=== PATIENT | male | born 1995 | race Caucasian/White ===

== ENCOUNTER → 2018-10-22 | Outpatient (CLI) | payer SELFPAY ==
[2018-10-22 12:01] LABS: BASOPHILS % 0.2 % (0.0-2.0); CHLORIDE 104 mEq/L (98-107); CLARITY URINE CLEAR (CLEAR); COLOR URINE YELLOW (YELLOW); EOSINOPHILS % 3.2 % (0.0-5.0); HEMATOCRIT. 43.8 % (42.0-52.0); HEMOGLOBIN. 15.3 g/dL (14.0-18.0); KETONES URINE NEGATIVE (NEGATIVE); LEUKOCYTE ESTERASE URINE NEGATIVE (NEGATIVE); LYMPHOCYTES % 26.2 % (20.0-50.0); MEAN CORPUSCULAR HEMOGLOBIN 28.6 pg (28.0-32.0); MEAN CORPUSCULAR VOLUME 81.8 fL (80.0-94.0); MEAN PLATELET VOLUME 7.4 fl (7.4-10.4); MONOCYTES % 7.7 % (2.0-8.0); NEUTROPHILS % 62.7 % (40.0-76.0); NITRITE URINE NEGATIVE (NEGATIVE); OCCULT BLOOD URINE NEGATIVE (NEGATIVE); PH URINE 6.5 (4.5-8.0); PLATELET 227 x1000/uL (130-400); PROTEIN URINE NEGATIVE (NEGATIVE); RED BLOOD CELL COUNT 5.35 mill/uL (4.7-6.1); RED CELL DISTRIBUTION WIDTH 12.9 % (11.6-14.6); SPECIFIC GRAVITY URINE 1.012 (1.005-1.030); UROBILINOGEN URINE 0.2 E.U./dL (0.2-1.0)
[2018-10-22 12:04] LABS: PARTIAL THROMBOPLASTIN TIME 30.8 sec (23.4-31.0); PROTHROMBIN TIME 10.5 sec (9.6-11.0)
== END | disposition home or self-care (01) ==
LOC: LAB 10:46
PROVIDERS: ATTEND Specialist
DX: Z01.810 Encounter for preprocedural cardiovascular examination (principal); L05.91 Pilonidal cyst without abscess
CPT/HCPCS: 36415; 80048

== ENCOUNTER 2018-10-23 09:21 | Day surgery (SDC) | payer SELFPAY ==
[~2018-10-23] VITALS: Ht 170.2 cm; Wt 99.8 kg
[2018-10-23] MEDS ORDERED: BUPIVACAINE HCL/PF 0.5% (5MG/ML) 10ML ONE ×2 (09:53→10:08)
[2018-10-23] MEDS ORDERED: BACITRACIN 50,000 UNITS/VIAL ONE ×2 (09:54→10:08)
[2018-10-23] MEDS ORDERED: NORMAL SALINE 0.9% 10 ML SYR ONE (10:08)
[2018-10-23] MEDS ORDERED: LIDOCAINE HCL 1% 20ML VIAL (Pyxis) INJ ONE (10:08)
[2018-10-23] MEDS ORDERED: LACTATED RINGERS 1,000 ML IV SCH (10:15)
[2018-10-23] MEDS ORDERED: BUPIVACAINE HCL/DEXTROSE/PF 0.75% 2ML AMP INJ ONE (10:27)
[2018-10-23] MEDS ORDERED: MIDAZOLAM HCL 5 MG/5 ML VIAL ONE (10:30)
[2018-10-23] MEDS ORDERED: SODIUM CHLORIDE 0.9% 1,000 ML IV ONE (11:12)
[2018-10-23] MEDS ORDERED: ONDANSETRON HCL 4MG/2ML INJ IV PRN (11:15)
[2018-10-23] MEDS ORDERED: HYDROMORPHONE HCL/PF 2MG/ML CPJ IV PRN (11:15)
== END 2018-10-23 14:00 | disposition home or self-care (01) ==
LOC: OR 09:21
PROVIDERS: ATTEND Specialist
DX: L05.91 Pilonidal cyst without abscess (principal); E66.3 Overweight; Z98.890 Other specified postprocedural states; Z68.34 Body mass index [BMI] 34.0-34.9, adult
CPT/HCPCS: 11771; 88305; J2250; J3490